=== PATIENT | female | born 1965 | race Caucasian/White ===

== ENCOUNTER → 2021-02-03 15:09 | Outpatient (CLI) | payer OTHER, SELFPAY ==
--- NOTE | ~2021-02-03 | XR_ITS ---
XR cervical spine 4-5V DATE: 02/03/2021 15:54 INDICATION: Cervical radiculopathy TECHNIQUE: AP, open-mouth, lateral, swimmer views COMPARISON: None FINDINGS: C1 and C2 are normally aligned and the odontoid process is intact. No fracture or dislocati on or locked facet or prevertebral soft tissue swelling. There is minimal anterolisthesis at C4-5. Moderate degenerative disease at C5-6 and C6-7. . Uncovertebral joint spurring is noted at C5-6 and C6-7 in particular. IMPRESSION: Minimal anterolisthesis at C4-5 Moderately prominent degenerative disc disease and uncovertebral joint spurring at C5-6 and C6-7 Reviewed, dictated and finalized at location A.
--- NOTE | ~2021-02-03 | XR_ITS ---
XR lumbar spine 2-3V DATE: 02/03/2021 15:54 INDICATION: Lumbar back pain TECHNIQUE: AP, lateral, coned lateral lumbosacral views COMPARISON: None FINDINGS: There are 6 functional lumbar vertebrae, apparently due to a lumbarized S1. No fracture or bone destruction. The pedicles are intact. There is moderate loss of disc space height and mild spurring at L3-4 and L4-5. Minimal spurring is noted at L1-2 and L2-3. Lumbar and lumbosacral interspaces are relatively preserved at L1-2, L2-3, L5- 6 and L6 -S2. The sacroiliac joints are intact. IMPRESSION: Lumbarized S1 Moderate degenerative disc disease at L3-4 and L4-5 Reviewed, dictated and finalized at location A.
== END ==
PROVIDERS: PCP Physician Assistant; Visit Provider Physician Assistant
DX: M54.12 Radiculopathy, cervical region (principal); M51.36 Other intervertebral disc degeneration, lumbar region; M43.12 Spondylolisthesis, cervical region; M50.322 Other cervical disc degeneration at C5-C6 level
CPT/HCPCS: 72050; 72100

== ENCOUNTER → 2022-11-27 08:45 | Outpatient (CLI) | payer OTHER, SELFPAY ==
--- NOTE | ~2022-11-27 | MM_ITS ---
EXAMINATION: MM screening brett BI w miguelito HISTORY: Screening mammogram TECHNIQUE: Craniocaudal and mediolateral oblique 3-D tomosynthesis images were obtained and synthetic 2-D images were generated. CAD analysis was submitted and interpreted. COMPARISON: 06/19/2019 diagnostic left mammogram 06/12/2019, 01/11/2014 bilateral screening mammogram examinations BREAST PARENCHYMAL COMPOSITION: There are scattered areas of fibroglandular density. FINDINGS: Approximately 9.5 mm circumscribed opacity consistent with previously reported sebaceous cy st in the very posterior upper inner left breast. There is no evidence of suspicious mass, calcificat ion, or architectural distortion to suggest malignancy in either breast. There has been no suspicious interval change. IMPRESSION: 1. No mammographic evidence of malignancy. 2. Recommend routine screening mammography in one year. BI-RADS Category 2: Benign finding(s). Reviewed, dictated and finalized at location A. EPOINT MANAGER
== END ==
PROVIDERS: PCP Physician Assistant; Visit Provider Obstetrics & Gynecology
DX: Z12.31 Encounter for screening mammogram for malignant neoplasm of breast (principal)
CPT/HCPCS: 77063; 77067

== ENCOUNTER → 2022-11-27 08:49 | Outpatient (CLI) | payer OTHER, SELFPAY ==
--- NOTE | ~2022-11-27 | XR_ITS ---
EXAMINATION: XR chest 2V DATE: 11/27/2022 09:38 INDICATION: Hemoptysis TECHNIQUE: Frontal and lateral views of the chest are obtained COMPARISON: None available FINDINGS: The lungs are free of acute opacities. No pleural effusion or pneumothorax. The cardiomedia stinal silhouette is normal. There is mild thoracic spondylosis. Surgical clips in the right upper quadrant are likely from prior cholecystectomy. IMPRESSION: 1. No acute cardiopulmonary abnormality. Reviewed, dictated and finalized at location A. 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
== END ==
PROVIDERS: PCP Physician Assistant; Visit Provider Physician Assistant
DX: R04.2 Hemoptysis (principal)
CPT/HCPCS: 71046

== ENCOUNTER 2024-07-03 15:23 | Outpatient (CLI) | payer OTHER, SELFPAY ==
--- NOTE | 2024-07-03 15:30 | ECG_ITS ---
Test Date: 2024-07-03 15:47:53 Measurements Intervals [place] Rate: 70 P: 53 CT: 163 QRS: -16 QRSD: 93 T: 23 QT: 383 QTc: 415 Interpretive Statements SINUS RHYTHM DELAYED PRECORDIAL R/S TRANSITION LOW QRS VOLTAGE IN PRECORDIAL LEADS LEFT VENTRICULAR HYPERTROPHY MINIMAL Q WAVES- HIGH LATERAL LEADS BORDERLINE ECG No previous ECG available for comparison Electronically Signed On 07-03-2024 16:23:04 CDT by Syed Kohler D.O.
[2024-07-03 15:58] LABS: Basophils Percent Auto 0.3 % (0.2-1.2); Eosinophils Absolute Auto 0.3 K/mm3 (0-0.3); Eosinophils Percent Auto 2.6 % (0-4.4); Hematocrit 40.4 % (37.0-47.0); Hemoglobin 13.8 g/dL (12.0-15.0); Immature Granulocyte Absolute 0.02 K/mm3 (0.00-0.031); Immature Granulocyte Percent A 0.2 % (0-0.5); Lymphocytes Absolute Auto 2.25 K/mm3 (0.9-3.2); Lymphocytes Percent Auto 22.9 % (18.3-44.2); Mean Corpuscular HGB Conc 34.2 g/dl (32-36); Mean Corpuscular Hemoglobin 31.6 pg (26-34); Mean Corpuscular Volume 92.4 fl (80-100); Mean Platelet Volume 10.4 fl (7.4-10.4); Monocytes Absolute Auto 0.9 K/mm3 (0.1-0.6); Neutrophils Absolute Auto 6.4 K/mm3 (1.3-6.7); Platelet Count Result 236 k/mm3 (150-375); Red Blood Count 4.37 M/mm3 (4.2-5.4); Red Cell Distribution Width 12.9 % (11.5-14.5); White Blood Count 9.8 K/mm3 (4.5-10.0)
[2024-07-03 16:12] LABS: Anion Gap 9 mmol/L (4-12); Blood Urea Nitrogen 22 mg/dL (7-17); Calcium 9.1 mg/dL (8.4-10.2); Carbon Dioxide 28 mmol/L (22-30); Chloride 100 mmol/L (98-107); Estimated Glomerular Filt Rate > 60; Glucose 103 mg/dL (65-110); Potassium 4.3 mmol/L (3.4-5.0); Sodium 137 mmol/L (137-145)
== END 2024-07-03 15:24 | disposition home or self-care (01) ==
PROVIDERS: Anesthesiology; PCP Family Medicine; Visit Provider Obstetrics & Gynecology
DX: Z01.818 Encounter for other preprocedural examination (principal); D25.9 Leiomyoma of uterus, unspecified; I11.9 Hypertensive heart disease without heart failure; Z79.899 Other long term (current) drug therapy
CPT/HCPCS: 36415; 80048; 85025; 86850; 86900; 86901; 93005

== ENCOUNTER 2024-07-06 00:18 | Day surgery (SDC) | payer OTHER, SELFPAY ==
[2024-06-29 09:51] VITALS: BMI 27.0
--- NOTE | 2024-06-29 10:00 | PC.NURSE ---
Report to the Outpatient Waiting Room, entrance under the green pavilion located off [facility], at time _0730_ on date _[id number]_. Planned Procedure Time: _30_.? Time changes happen often and if your time is changed the preop area will call you the afternoon before. - You and your visitor will be asked to self-screen and do not enter if you have any COVID symptoms. Please call surgeon if you need to reschedule. - A mask is optional within the hospital at this time. Patients may have clear liquids (water, carbonated beverages, clear teas, apple juice) until 3 hours prior to surgery with a maximum of 20 ounces. - No food from midnight until time of surgery and no smoking Take only the following medications with a SIP of water on the morning of surgery: ___eye drops OK. DO NOT STOP ANY OF YOUR OTHER PRESCRIPTION MEDICATIONS PRIOR TO SURGERY EXCEPT THE FOLLOWING Medications to discontinue per physician ___All vitamins and supplements___ Date to take last spva__[id number] Please no make-up, nail luxembourgish, hairspray, perfume, deodorant, or body powder the day of surgery.? No jewelry (including any body piercings) or valuables the day of surgery, leave them at home.? Please take a shower or bath the night before, or the morning of, surgery with an antibacterial soap.? Wear comfortable, loose fitting clothing.? - Jewelry must be removed prior to entering the operating room.? Rings and piercings that are not removed may be cut off. - The hospital will not accept responsibility for valuables.? - Please leave all valuables, including medications, at home the day of surgery. If you are going home after surgery, a licensed dedicated regional driver must drive you home.? - NO public transportation without another adult if you receive anesthesia. - We recommend that an adult stay with you for 24 hours following discharge. - We also recommend that you do not drive, make important decision, drink alcoholic beverages, or take any drugs that were not prescribed by your health care provider for at least 24 hours after your discharge time. Follow any additional instructions given to you from your surgeon. Telephone instructions given to __Kelly__and asked if any additional questions and then verbalized understanding. Patient advised to call surgeon office or pre surgery nurse liaison [phone] if any additional questions.
--- NOTE | 2024-07-03 13:05 | PM.IMHP ---
H&P: HPI History of Present Illness Date/Time: 07/03/24 13:05 Chief Complaint: Enlarged uterus with fibroids/pelvic pain/dyspareunia/stress urinary incontinence Narrative: 58-year-old female admitted for robotic total vaginal hysterectomy bilateral salpingectomy and tension-free vaginal tape. She has a markedly enlarged uterine fibroid she has had pelvic pain discomfort dyspareunia and also has stress incontinence. She will undergo a TVT as well. Risks and benefits reviewed including but not exclusive of , aspiration pneumonia bleeding, transfusion, perforation injury to bowel, bladder, ureters, or other internal organs with need for open laparotomy. The risks of mesh placement reviewed in great detail. She had all questions answered. She received the ACOG handout entitled hysterectomy as well as that of itchy handout and the TVT handout. She had all questions answered and asked to proceed PMFSH Past Medical History Medical History Degenerative disc disease cervical and lumbar Histoplasmosis retinitis HTN (hypertension) Idiopathic small fiber peripheral neuropathy feet Prediabetes Surgical History Surgical History History of section 1994, 1996, 1997, 1998 History of laparoscopic cholecystectomy 08/23/2019 History of tonsillectomy 02/1972 Family History Family History Father No problems noted. Mother No problems noted. Social History Social History Smoking status: Never smoker Alcohol intake: current Drinks per week: 4 Alcohol use details: socially Substance use: never Substance use type: does not use Lack of Transportation: No Lack of Food: Never True Current Housing: I Have Housing Concerned About Future Housing: No Difficulty Paying Gas/Electric Bills: No Difficulty Paying for Meds: No Currently Unemployed: No Education: High School Diploma/GED Living arrangements: with family Occupation/Education: occupation Gender identity (if verbalized by the patient): Female Sexual Orientation (if Verbalized by the Patient): Straight or Heterosexual Spiritual care concerns: No Meds Home Medications and Allergies Home Medications Medication Instructions Recorded Confirmed Type carboxymethylcellulose sodium 0.25 1 drp EACH EYE DAILY #15 mL 02/14/23 06/29/24 Rx % eye drops (TheraTears) coenzyme Q10 100 mg capsule 100 mg PO DAILY #30 caps 02/14/23 06/29/24 Rx magnesium 200 mg tablet 200 mg PO DAILY #30 tabs 02/14/23 06/29/24 Rx olopatadine 0.2 % eye drops 1 drp EACH EYE DAILY #2.5 mL 02/14/23 06/29/24 Rx (Pataday Once Daily Relief) losartan 100 1 tablet PO DAILY #90 tabs 06/08/24 06/29/24 Rx mg-hydrochlorothiazide 12.5 mg tablet minoxidil 2.5 mg tablet 2.5 mg PO DAILY 06/29/24 06/29/24 History multivitamin with iron (Hair 1 tablet PO DAILY 06/29/24 06/29/24 History Vitamins tablet) turmeric 400 mg capsule 400 mg PO DAILY 06/29/24 06/29/24 History vitamin D3 250 mcg (10,000 1 cap PO DAILY 06/29/24 06/29/24 History unit)-vitamin K2 45 mcg capsule Allergies Allergy/AdvReac Type Severity Reaction Status Date / Time No Known Allergies Allergy Verified 06/29/24 14:50 Exam Const: General: cooperative, healthy appearing, comfortable and overweight Orientation/consciousness: oriented to person, oriented to place and oriented to time HENMT: Head: normal to inspection Resp: Effort & Inspection: normal respiratory effort Cardio: Rate: regular rate Rhythm: regular rhythm Heart sounds: S1 normal heart sound present and S2 normal heart sound present GI: Inspection: normal to inspection : External Female Exam: normal external appearance and normal appearance of the urethra (Hyper
[2024-07-06] VITALS (10 sets, daily range): BP systolic 96–125; BP diastolic 50–76; PULSE 63–88; RESP 12–18; TEMP 36.3–37.5; O2SAT 95–100
--- NOTE | 2024-07-06 07:11 | WPDHPUPDATE1 ---
History and Physical Update Update Date/Time: 07/06/24 07:11 History and Physical has been reviewed, including an updated exam of the patient. There are NO changes in the patient's condition. Risks, benefits, and alternatives have been discussed and questions answered. Patient agrees to proceed with procedure.
--- NOTE | 2024-07-06 07:55 | WPDANESEPPF ---
Anes - Initial Pre Proc Eval Procedure: Operation Date: 07/06/24 09:30 Proposed Procedures p Robotic Assisted Total Vaginal Hysterectomy, Bilateral Salpingectomy - Alphonso Betancourt MD s Tension Vaginal Taping - Alphonso Betancourt MD Date/Time: 07/06/24 07:55 Surgeon: Alphonso Betancourt MD Pre Op Diagnosis: Pelvic Pain, Dyspareunia, Enlarge Uterus,fibroid Patient Data Age: 58 Gender: F Height: 1.74 m Weight: 81.8 kg Allergies Allergy/AdvReac Type Severity Reaction Status Date / Time No Known Allergies Allergy Verified 06/29/24 14:50 Home Medications Medication Instructions Recorded Confirmed Type carboxymethylcellulose sodium 0.25 1 drp EACH EYE DAILY #15 mL 02/14/23 06/29/24 Rx % eye drops (TheraTears) coenzyme Q10 100 mg capsule 100 mg PO DAILY #30 caps 02/14/23 06/29/24 Rx magnesium 200 mg tablet 200 mg PO DAILY #30 tabs 02/14/23 06/29/24 Rx olopatadine 0.2 % eye drops 1 drp EACH EYE DAILY #2.5 mL 02/14/23 06/29/24 Rx (Pataday Once Daily Relief) losartan 100 1 tablet PO DAILY #90 tabs 06/08/24 06/29/24 Rx mg-hydrochlorothiazide 12.5 mg tablet minoxidil 2.5 mg tablet 2.5 mg PO DAILY 06/29/24 06/29/24 History multivitamin with iron (Hair 1 tablet PO DAILY 06/29/24 06/29/24 History Vitamins tablet) turmeric 400 mg capsule 400 mg PO DAILY 06/29/24 06/29/24 History vitamin D3 250 mcg (10,000 1 cap PO DAILY 06/29/24 06/29/24 History unit)-vitamin K2 45 mcg capsule hydrocodone 5 mg-acetaminophen 325 1 tablet PO Q4H PRN pain #20 tabs 07/06/24 Rx mg tablet Patient hx anesthesia problems: none Family hx anesthesia problems: none Results Review: All pre-operative results and documents have been reviewed as part of the pre-operative evaluation. FOR[facility]LY [facility] Past Medical History Medical History Degenerative disc disease cervical and lumbar Histoplasmosis retinitis HTN (hypertension) Idiopathic small fiber peripheral neuropathy feet Prediabetes Surgical History Surgical History History of section 1994, 1996, 1997, 1998 History of laparoscopic cholecystectomy 08/23/2019 History of tonsillectomy 02/1972 Family History Family History Father No problems noted. Mother No problems noted. Social History Social History Smoking status: Never smoker Alcohol intake: current Drinks per week: 4 Alcohol use details: socially Substance use: never Substance use type: does not use Lack of Transportation: No Lack of Food: Never True Current Housing: I Have Housing Concerned About Future Housing: No Difficulty Paying Gas/Electric Bills: No Difficulty Paying for Meds: No Currently Unemployed: No Education: High School Diploma/GED Living arrangements: with family Occupation/Education: occupation Gender identity (if verbalized by the patient): Female Sexual Orientation (if Verbalized by the Patient): Straight or Heterosexual Spiritual care concerns: No Anes - Eval Final PreProcedure Day of Procedure 07/06/24 07:55 Patient weight: overweight Heart: regular rate and rhythm Lungs: clear to auscultation Airway: Mallampati scale class II Neurological: alert and oriented Last oral intake: >/= 8 hours ASA classification: III Emergent: no Anesthetic plan: proceed Anesthesia type and monitoring: general ETT and standard monitoring Results Review: All pre-operative results and documents have been reviewed as part of the pre-operative evaluation. Informed Consent: The patient's anesthetic plan and its attendant risks and benefits were discussed with the patient/family/POA. Questions were solicited and answers provided to the satisfaction of the patient/family/POA.
[2024-07-06] MEDS: LACTATED RINGERS 1,000 ML 30 ML IV CONT ×2 (08:00→11:27)
[2024-07-06] MEDS: KETOROLAC 15 MG/ML VIAL (*BKC) IV PUSH (08:38)
[2024-07-06] MEDS: ACETAMINOPHEN 500 MG TABLET 1000 MG PO (08:38)
[2024-07-06] MEDS: ceFAZolin 2 GM/D5W 50 ML 2 GM/50 ML BAG IVPB (09:30)
--- NOTE | 2024-07-06 11:17 | W.PM.PROC2 ---
Procedure Note - Detailed Date of Procedure 07/06/24 Pre-op Diagnosis Pelvic Pain, Dyspareunia, Enlarge Uterus,fibroid/ stress urinary Post-op Diagnosis Same Procedure Performed robotic supracervical hysterectomy bilateral salpingectomy lysis of adhesions tension-free vaginal tape cystoscopy Surgeon Alphonso Betancourt MD Anesthesia General Indications the 58 old dyspareunia /enlarged uterus/ stress urinary incontinence Findings work of the scarred uterus to the anterior abdominal wall. Difficulty in finding the cervix vaginally due to the scarring. Normal-appearing tubes and ovaries Description of Procedure patient was prepped draped in normal sterile fashion placed in the dorsal lithotomy position. Under excellent general tracheal anesthesia weighted speculum placed in posterior fornix vagina. Cervix was not able to be manipulated easily was grasped with a single-tooth however the uterus was opened markedly adherent to the anterior abdominal wall the PETROS could not be placed. An 18 Armenian catheter was placed bladder drained clear urine. The weighted speculum was removed. Gloves were changed. A supraumbilical incision made the Veress needle passed in the abdomen. Abdomen filled with CO2 gas to 15mm Hg. 8mm trocar advanced under direct visualization assuring no injury. Patient placed in Trendelenburg and right left lateral quadrant incisions made. 8Mm trocars advanced under direct visualization bilaterally. Right upper quadrant incision made the 8 trocar advanced under direct visualization assuring no injury. The robot was docked. Attention was turned to the developmental training counselor. There were marked amount of adhesions from the omentum to the anterior abdominal wall using sharp dissection these were taken down until the uterus could be seen. The uterus was seen be markedly adherent to the anterior. This provided fair amount of difficulty in the explanation for the angle of the cervix. Sharp dissection was undertaken to separate the uterus from the anterior. The round ligament on the right was grasped burned, cut. Anterior bladder flap was formed by sharp dissection peritoneum and retracting this caudally to the opposite was burned cut. Next the co tube were left was skeletonized the left attached to the uterine attachment at and from the ovary this was repeated on the contralateral side. Conserving the left ovary the utero-ovarian ligaments clamped, burned, cut brought to the level of previously cut round ligament in similar fashion conserving the right ovary, the utero-ovarian ligament was clamped, burned, cut brought to the level of previously cut round ligament. The cardinal broad ligaments were skeletonized clamping burning cutting the left until the uterine vessels could be seen on the left these were individually clamped, burned, cut. In similar fashion cardinal broad ligaments were serially skeletonized clamping burning cutting and bring these down to the level of the uterine vessels which were then individually clamped, burned, cut. At that point it was felt that it was not a safe procedure to remove the cervix without risking severe injury to the bladder a decision for supracervical incision was made this was undertaken without difficulty. This was divided to 2 by above bivalved and taken out the right lower quadrant the upper incision in Endo-Catch as. The fascia was closed in that incision with running 0 Vicryl the skin closed with 4 Monocryl glue after the was undocked and the gas removed from the abdomen. Attention was then turned to the tension-free 10 vaginal tape portion. The mid urethral suburethral incision was made and the lateral bladder space is entered by blunt dissection. The [address] in [address]. The bladder urethral catheter was guide was placed in the urethra retracted laterally the right retropubic bladder space entered a 35 degree angle up to 45 through the skin and fascia the urethra was retracte
--- NOTE | 2024-07-06 11:24 | PM.DS ---
DS: Admitting Diagnosis Discharge Date 07/07/2024 Admitting Diagnosis stress urinary incontinence fibroid uterus/pelvic pain /dyspareunia DS: Discharge Diagnosis Discharge Diagnosis (1) Overflow stress urinary incontinence in female: Code(s): N39.3 - Stress incontinence (female) (male); N39.490 - Overflow incontinence Status: Acute (2) Pelvic pain: Code(s): R10.2 - Pelvic and perineal pain Status: Acute (3) Dyspareunia: Status: Acute (4) Uterine fibroid: Code(s): D25.9 - Leiomyoma of uterus, unspecified Status: Acute DS: Summary Hospital Course Reason for hospitalization: patient was admitted from for robotics total vaginal hysterectomy bilateral salpingectomy with tension-free vaginal tape and cystoscopy the procedure was converted to a supracervical procedure but otherwise was unremarkable. Hospital Course: Patient's hospital course unremarkable. She remained afebrile. She was up, voiding without difficulty, eating regular diet, ambulating, and generally without complaints. Time Spent with Patient Time attestation: Total time spent providing and/or coordinating discharge services: Exam Const: General: cooperative, healthy appearing and comfortable Nutritional Appearance: average body habitus Orientation/consciousness: oriented to person, oriented to place and oriented to time Resp: Effort & Inspection: normal respiratory effort Cardio: Rate: regular rate Rhythm: regular rhythm Heart sounds: S1 normal heart sound present and S2 normal heart sound present GI: Inspection: normal to inspection and incision ( Wounds are clean dry and intact) DS: Data Data Completed and Pending Pending studies at discharge: Pending at discharge 07/06/24 11:04 Surgical [PTH] Routine Discharge Plan Discharge Patient Disposition: Home, Self-Care Stand Alone Forms: General Discharge Instructions Follow-up/Referrals: Alphonso Bazzi MD [Physician] - Discharge Medications: New hydrocodone-acetaminophen 5-325 mg tablet 1 tablet PO Q4H PRN (Reason: pain) Qty: 20 0RF No Action olopatadine [Pataday Once Daily Relief] 0.2 % drops 1 drp EACH EYE DAILY Qty: 2.5 0RF coenzyme Q10 100 mg capsule 100 mg PO DAILY Qty: 30 0RF magnesium 200 mg tablet 200 mg PO DAILY Qty: 30 0RF TheraTears 0.25 % drops 1 drp EACH EYE DAILY Qty: 15 0RF minoxidil 2.5 mg Tablet 2.5 mg PO DAILY multivitamin with iron [Hair Vitamins] Tablet 1 tablet PO DAILY turmeric 400 mg Capsule 400 mg PO DAILY vitamin D3-vitamin K2 250 mcg (10,000 unit)-45 mcg Capsule 1 cap PO DAILY losartan-hydrochlorothiazide 100-12.5 mg tablet 1 tablet PO DAILY Qty: 90 2RF Rx Instructions: Takes at HS
[2024-07-06] MEDS: fentaNYL CITRATE INJ (*CRX) 100 MCG/2 ML VIAL 25 MCG IV PUSH ×2 (12:11→12:36)
[2024-07-06] MEDS: SIMETHICONE 80 MG TAB.CHEW PO ×2 (14:46→17:22)
[2024-07-06] MEDS: KETOROLAC 30 MG/ML VIAL (*BKC) IV PUSH ×2 (14:46→20:55)
[2024-07-06] MEDS: DOCUSATE SODIUM 100 MG CAPSULE PO (17:22)
[2024-07-07 00:13] VITALS: BP 90/50; PULSE 80; RESP 18; TEMP 36.4; O2SAT 95
[2024-07-07] MEDS: HYDROcodone/acetaminophen (*CRX) 5-325 MG TABLET 1 TAB PO ×2 (00:31→09:12)
[2024-07-07] MEDS: KETOROLAC 30 MG/ML VIAL (*BKC) IV PUSH (03:24)
[2024-07-07 04:26] VITALS: BP 100/72; PULSE 75; RESP 18; TEMP 36.6; O2SAT 96
[2024-07-07 06:23] LABS: Basophils Percent Auto 0.3 % (0.2-1.2); Eosinophils Percent Auto 0.1 % (0-4.4); Hematocrit 33.9 % (37.0-47.0); Hemoglobin 11.5 g/dL (12.0-15.0); Immature Granulocyte Absolute 0.07 K/mm3 (0.00-0.031); Immature Granulocyte Percent A 0.4 % (0-0.5); Lymphocytes Absolute Auto 1.05 K/mm3 (0.9-3.2); Lymphocytes Percent Auto 6.6 % (18.3-44.2); Mean Corpuscular HGB Conc 33.9 g/dl (32-36); Mean Corpuscular Hemoglobin 31.7 pg (26-34); Mean Corpuscular Volume 93.4 fl (80-100); Mean Platelet Volume 10.9 fl (7.4-10.4); Monocytes Absolute Auto 1.4 K/mm3 (0.1-0.6); Monocytes Percent Auto 8.8 % (2.6-8.5); Neutrophils Absolute Auto 13.3 K/mm3 (1.3-6.7); Neutrophils Percent Auto 83.8 % (45.5-73.1); Platelet Count Result 249 k/mm3 (150-375); Red Blood Count 3.63 M/mm3 (4.2-5.4); Red Cell Distribution Width 12.8 % (11.5-14.5); White Blood Count 15.9 K/mm3 (4.5-10.0)
--- NOTE | 2024-07-07 07:13 | PM.GYNPNOP ---
PYTHON PROGRAMMER - A/P Postoperative Procedures: Procedures Operation Date: 07/06/24 09:30 Actual Procedure Side Surgeon p Robotic Assisted Supracervical Hysterectomy, Bilateral Salpingectomy Bilateral Alphonso Betancourt MD s Tension Vaginal Taping Alphonso Betancourt MD Postoperative day: 1 Postoperative status: doing well Postoperative plan: routine post-op care, see orders, ambulate, advance diet, voiding trials and discharge Time Spent With Patient Time: Total time spent is greater than 50% in coordination of care (as documented) at patient's floor/unit and/or counseling patient: Time with patient: less than 15 minutes PYTHON PROGRAMMER- PN:Subj Post-Op Subjective Date/time seen: 07/07/24 07:13 Subjective: patient reports feeling better, patient has no complaints, patient desires discharge, pain is well controlled and patient is tolerating oral intake Exam Const: General: cooperative, healthy appearing and comfortable Nutritional Appearance: average body habitus Orientation/consciousness: oriented to person, oriented to place and oriented to time HENMT: Head: normal to inspection Resp: Effort & Inspection: normal respiratory effort Cardio: Rate: regular rate Rhythm: regular rhythm Heart sounds: S1 normal heart sound present and S2 normal heart sound present GI: Inspection: normal to inspection and incision (cdi) PYTHON PROGRAMMER - PN: Obj Data Vital Signs Vital Signs: Vital Signs - 24 hr 07/06/24 08:41 07/06/24 11:27 07/06/24 11:40 Temperature 98.4 F 97.4 F L Pulse Rate 88 78 66 Respiratory Rate 16 14 16 Blood Pressure 125/66 113/67 96/50 L Pulse Oximetry 98 99 97 Oxygen Delivery Room Air Simple Face Mask Simple Face Mask Oxygen Flow Rate 10 07/06/24 11:55 07/06/24 12:10 07/06/24 12:25 Temperature 99.5 F 97.8 F Pulse Rate 70 66 75 Respiratory Rate 12 16 16 Blood Pressure 111/65 113/76 111/65 Pulse Oximetry 100 95 96 Oxygen Delivery Simple Face Mask Room Air Room Air Oxygen Flow Rate 10 07/06/24 12:36 07/06/24 12:50 07/06/24 15:16 Temperature 97.4 F L 97.6 F Pulse Rate 81 64 74 Respiratory Rate 14 16 18 Blood Pressure 115/64 105/60 109/51 L Pulse Oximetry 96 97 95 Oxygen Delivery Room Air Oxygen Flow Rate 07/06/24 14:20 07/06/24 19:02 07/07/24 00:13 Temperature 98.3 F 97.6 F Pulse Rate 63 80 Respiratory Rate 18 18 Blood Pressure 104/57 L 90/50 L Pulse Oximetry 96 95 Oxygen Delivery Room Air Oxygen Flow Rate 07/07/24 04:26 Temperature 97.8 F Pulse Rate 75 Respiratory Rate 18 Blood Pressure 100/72 Pulse Oximetry 96 Oxygen Delivery Oxygen Flow Rate Intake/Output Intake/Output: Intake & Output 07/04/24 07/05/24 07/06/24 07/07/24 23:59 23:59 23:59 23:59 Intake Total 1000 900 Output Total 2265 850 Balance -1265 50 Meds/Results Medications: Active Medications Generic Name Dose Route Start Last Admin Trade Name Freq PRN Reason Stop Dose Admin Hydrocodone Bitart/Acetaminophen 1 tab 07/06/24 12:40 07/07/24 00:31 Hydrocodone/Acetaminophen (*Crx) 5-325 Mg Tablet PO 1 tab Q3H PRN Administration Pain Rated 5 or Less Hydrocodone Bitart/Acetaminophen 1 tab 07/06/24 12:40 Hydrocodone/Acetaminophen (*Crx) 10-325 Mg Tablet PO Q3H PRN Pain Rated 6 or Greater Docusate Sodium 100 mg 07/06/24 17:00 07/06/24 17:22 Docusate Sodium 100 Mg Capsule PO 100 mg BID GRACE Administration Enoxaparin Sodium 40 mg 07/07/24 09:00 Enoxaparin 40 Mg/0.4 Ml Syringe SUB-Q DAILY [facility] Dextrose/Lactated Ringer's 1,000 mls @ 125 mls/hr 07/06/24 12:40 Dextrose 5%/Lactated Ringers IV CONT .Q8H GRACE Ibuprofen 600 mg 07/06/24 12:40 Ibuprofen 600 Mg Tablet PO Q6H PRN Cramping Ketorolac Tromethamine 30 mg 07/06/24 12:40 07/07/24 03:24 Ketorolac 30 Mg/Ml Vial (*Bkc) IV PUSH 07/11/24 12:39 30 mg Q6H PRN Administration Pain Rated 4-6 Naloxone HCl 0.1 mg 07/06/24 12:40 Naloxone Hcl 0.4 Mg/Ml
[2024-07-07 08:50] VITALS: BP 98/53; PULSE 66; RESP 18; TEMP 36.4
[2024-07-07] MEDS: ENOXAPARIN 40 MG/0.4 ML SYRINGE SUB-Q (09:11)
[2024-07-07] MEDS: DOCUSATE SODIUM 100 MG CAPSULE PO (09:12)
[2024-07-07] MEDS: SIMETHICONE 80 MG TAB.CHEW PO (09:12)
== END 2024-07-07 09:35 | disposition home or self-care (01) ==
LOC: ANHSURGERY 07:38 → ANHOB2 12:46
PROVIDERS: PCP Family Medicine; Visit Provider Obstetrics & Gynecology
PROC: (CPT 57288; principal; 2024-07-06 09:30)
PROC: 0TSD0ZZ Reposition Urethra, Open Approach (ICD-10-PCS; CPT 57288; 2024-07-06 09:30)
DX: N39.3 Stress incontinence (female) (male) (principal); D25.9 Leiomyoma of uterus, unspecified; N94.10 Unspecified dyspareunia; N39.490 Overflow incontinence; I10 Essential (primary) hypertension; G62.89 Other specified polyneuropathies
CPT/HCPCS: 57288; 58542; S2900; 36415; 80048; 85025; 86850; 86900; 86901; 88307; 93005; 99199; A9270; C1771; J0690; J1100; J1170; J1650; J1885; J2250; J2590; J2704; J3010; J7030; J7120